=== PATIENT | male | born 1975 | race Caucasian/White ===

== ENCOUNTER 2017-10-25 12:52 | Emergency (ER) | payer BC ==
[~2017-10-25] VITALS: Ht 172.7 cm; Wt 75.0 kg
[~2017-10-25 12:52] MED LIST: CONCERTA36 MG PO; EVERFLEX PO; FIORICET 50-301 EACH PO; KEFLEX500 MG PO; NORCO 5/3251 TABLET PO
[2017-10-25] MEDS ORDERED: BENADRYL25 MG PO (14:31)
[2017-10-25] MEDS ORDERED: PREDNISONE20 MG PO (14:31)
[2017-10-25 14:44] VITALS: BP 119/82
== END 2017-10-25 14:47 | disposition home or self-care (01) ==
LOC: EME 12:52
DX: T63.441A Toxic effect of venom of bees, accidental (unintentional), initial encounter (principal); L50.0 Allergic urticaria; R51 Headache; R22.0 Localized swelling, mass and lump, head; F17.220 Nicotine dependence, chewing tobacco, uncomplicated
CPT/HCPCS: 99281; 99284; J7512